=== PATIENT | male | born 1975 | race Caucasian/White ===

== ENCOUNTER 2020-05-21 07:46 | Day surgery (SDC) | payer BC ==
[2020-05-20 08:52] VITALS: BMI 27.1
[~2020-05-21 07:46] MED LIST: LACTATED RINGERS 1,000 ML IV SCH
[2020-05-21 08:16] VITALS: RESP 16; TEMP 97.7
[2020-05-21] MEDS ORDERED: LIDOCAINE 1% (10MG/ML) FOR IV START INTRADERMA ONE (08:30)
[2020-05-21] MEDS ORDERED: PROPOFOL 10 MG/ML 20 ML VIAL IV ONE (08:44)
--- NOTE | 2020-05-21 08:57 | P.PCN ---
Date of Procedure: 05/21/20 Procedure(s) Performed: BRIEF HISTORY: Patient is a 45-year-old [place] 6 male scheduled for an elective colonoscopy as a part of screening for colorectal neoplasia. He has family history of colon cancer in his maternal uncle and paternal grandmother. PROCEDURE PERFORMED: Colonoscopy snare polypectomy. PREOPERATIVE DIAGNOSIS: Screening for colon cancer and family history of colon cancer. IV sedation per Anesthesia. PROCEDURE: After informed consent was obtained, the patient, was brought into [facility] endoscopy unit. IV sedation was administered by Anesthesia under continuous monitoring. Digital rectal examination was normal. Initially the Olympus CF-160 flexible video colonoscope was then inserted in the rectum, gradually advanced into the cecum without any difficulty. Careful examination was performed as the scope was gradually being withdrawn. Ileocecal valve and the appendiceal orifice were visualized and appeared normal. Prep was excellent. Mucosa of the cecum, ascending colon, transverse colon, descending colon, sigmoid colon, and rectum appeared normal. In the proximal rectum there was a 1 cm polyp removed by snare polypectomy. Retroflexion was performed in the rectum and no lesions were seen. The patient tolerated the procedure well. IMPRESSION: 1 cm rectal polyp status post polypectomy. Rest of the colon appeared normal RECOMMENDATIONS: Findings of this examination were discussed with the patientas well as a family. He was advised to follow with the biopsy results and have a repeat colonoscopy in 3-5 years].
[2020-05-21 09:17] VITALS: BP 117/71; PULSE 57
== END 2020-05-21 09:35 | disposition home or self-care (01) ==
LOC: ORWHC2ENDO 07:46
PROVIDERS: ATTEND Internal Medicine Gastroenterology
DX: Z12.11 Encounter for screening for malignant neoplasm of colon (principal); D12.8 Benign neoplasm of rectum; E78.5 Hyperlipidemia, unspecified; Z72.0 Tobacco use; Z80.0 Family history of malignant neoplasm of digestive organs
CPT/HCPCS: 88305; 45385; J2704